=== PATIENT | male | born 1960 | race Caucasian/White ===

== ENCOUNTER 2017-03-31 21:21 | Emergency (ER) | payer MEDICARE, MEDICAID ==
[~2017-03-31 21:21] MED LIST: BACTRIM DS TABL1 TAB PO; BAYER CHEWABLE81 M2 PO; HYDROCODONE/APA1 CAP; HYDROXYZINE HCL10 M1 PO; HYDROXYZINE HCL25 M1 PO; NEURONTIN100 M1 PO; NORCO 5-325 TA1 EACH PO; NORCO 5/325 TAB1 TAB PO; VENTOLIN HFA18 G2 PO; ZETIA10 M1 PO
[2017-03-31 21:56] LABS: BASO % 0.4 % (0-2); EOS % 3.5 % (0-7); EOSINOPHIL ABSOLUTE COUNT 0.2 tho/cmm (0.0-0.7); HCT-HEMATOCRIT 47.2 % (36.0-53.5); HGB-HEMOGLOBIN 16.4 gm/dl (13.5-17.0); IMMATURE GRANULOCYTES ABSOLUTE 0.01 tho/cmm (0-0.03); IMMATURE GRANULOCYTES PERCENT 0.1 % (0-0.3); LYMPH ABSOLUTE COUNT 2.9 tho/cmm (0.8-4.5); MCH (MEAN CORPUSCULAR HGB) 31.1 pg (28.0-32.0); MCHC MEAN CORPUSCULAR HGB CONC 34.7 % (32.0-36.0); MCV (MEAN CELL VOLUME) 89.4 fl (82.0-96.0); MEAN PLATELET VOLUME 9.8 cmc (9.4-12.4); MONO % 8.6 % (0-12); MONOCYTE ABSOLUTE COUNT 0.6 tho/cmm (0.0-1.2); NEUTROPHIL ABSOLUTE COUNT 3.1 tho/cmm (1.6-8.0); NEUTROPHIL-AUTOMATED 3.1 tho/cmm (1.6-8.0); NEUTROPHILS % 45.4 % (40-80); PLATELET COUNT 209 tho/cmm (150-450); RED BLOOD COUNT 5.28 mil/cmm (4.40-5.70); WHITE BLOOD COUNT 6.8 tho/cmm (4.0-10.0)
[2017-03-31 22:10] LABS: ALBUMIN 3.7 g/dl (3.5-5.0); ALKALINE PHOSPHATASE 74 U/L (33-138); ALT/SGPT 25 U/L (12-78); BILIRUBIN,TOTAL 0.7 mg/dl (0.0-1.5); BLOOD UREA NITROGEN 14 mg/dl (6-24); CALCIUM 8.6 mg/dl (8.5-10.5); CARBON DIOXIDE-VENOUS 26 mmol/L (22-32); CHLORIDE 108 mmol/l (96-110); CREATININE 1.07 mg/dl (0.60-1.30); GLUCOSE 90 mg/dL (70-110); SODIUM 141 mmol/L (135-145); eGFR VALUE FOR BLACK >90 mL/Min
[2017-03-31 22:30] LABS: ANION GAP 11 mmol/L (0-20); AST/SGOT 26 U/L (10-40)
[2017-03-31] MEDS ORDERED: PREDNISONE20 M1 PO (23:41)
== END 2017-03-31 23:56 ==
LOC: EDMED 21:21
PROVIDERS: Emergency Medicine
DX: J45.901 Unspecified asthma with (acute) exacerbation (principal); R07.89 Other chest pain; G89.29 Other chronic pain; M54.6 Pain in thoracic spine; E78.5 Hyperlipidemia, unspecified; F17.210 Nicotine dependence, cigarettes, uncomplicated; Z88.0 Allergy status to penicillin
CPT/HCPCS: J1885; J2930; J7030